=== PATIENT | male | born 1940 | race Caucasian/White ===

== ENCOUNTER 2024-07-06 12:38 | Outpatient (AMB) | payer MEDICARE, OTHER, SELFPAY ==
--- OUTSIDE RECORDS SUMMARY | 2024-07-06 12:40 | XMS_ITS | Clinical Summary ---
Author Organization Formerly [facility] Address [address] [place] [address] Care Team Providers Care Maintenance Mechanic Telephone Name Role Phone Unavailable Primary Care Provider Unavailabl e Social History Tobacco Use Types Packs/Day Years Used Date Smoking Tobacco: Never Assessed Sex and Gender Information Value Date Recorded Sex Assigned at Not on file Legal Sex Male 3:52 PM EDT Gender Identity Not on file Sexual Orientation Not on file Plan of Treatment Health Maintenance Due Date Last Done Comments DTaP/Tdap/Td Vaccines (1 - Tdap) 1959 Pneumococcal Vaccines 50+ (1 of 1 - PCV) 1988 Zoster (Shingles) Vaccine (1 of 2) 1988 RSV Vaccine 60 years and old er and Patients (1 - 1-dose 75+ series) 2013 COVID-19 Vaccine ( - 2023-2 5 season) 2023 Hepatitis B Vaccines Aged Out No long er eligible based on patient's age to complete this topic
--- OUTSIDE RECORDS SUMMARY | 2024-07-06 12:40 | XMS_ITS | Encounter Summary ---
Author Organization [facility] Address [address] [place] [address] Phone Care Team Providers Care Car Checker Name Role Phone John Artis MD Primary Care Provider [phone] Encounter Details Date Type Department Care Team (Late Contact Info) Description 07/09/2021 Telephone [facility] [address] [place] [address] Darnell Andrews, DO [address] [place] [id number] Social History Tobacco Use Types Packs/Day Years Used Date Smoking Tobacco: Never Smokeless Tobacco: Never Alcohol Use Standard Drinks/Week Comments Yes 0 (1 standard drink = 0.6 oz pur e alcohol) 1-2 times a month Sex and Gender Information Value Date Recorded Sex Assigned at Not on file Legal Sex Male 1:16 PM EDT Gender Identity Not on file Sexual Orientation Not on file documented as of this encounter Miscellaneous Notes * Telephone Encounter - Mikaela Jaramillo - 07/09/2021 4:23 PM EDT Pt called, he would like to speak with you reg his U/S results from May. Please call him back at [phone] Thank you documented in this encounter Plan of Treatment Upcoming Encounters Date Type Department Care Team (Late Contact Info) Description 11/28/2024 2:00 PM EDT [facility] Visit [facility] [address] [place] [address] Javad Lynn MD [address] [address] documented as of this encounter Visit Diagnoses Not on filedocumented in this encounter Care Teams Car Checker Relationship Specialty Start Date End Date John Artis MD [address] [place] [address], [address] [place], [place] PCP - General Internal Medicine 11/17/20 documented as of this encounter
--- OUTSIDE RECORDS SUMMARY | 2024-07-06 12:40 | XMS_ITS | Clinical Summary ---
Author Organization [facility] Address [address] [facility] [address] [place] [address] Phone Care Team Providers Care Consumer Loan Processor Name Role Phone John Artis MD Primary Care Provider [phone] Allergies Active Allergy Reactions Criticality Noted Date Comments Mixed Ragweed 06/18/2021 Molds & Smuts 06/18/2021 Short Ragweed Pollen Ext 11/27/2020 Medications aspirin (ST ELISABETH) 81 MG EC tablet Take 81 mg by mouth 1 (one) time each day Active bumetanide (BUMEX) 0.5 MG tablet Take 0.5 mg by mouth 1 (one) time each day Active calcium carbonate (OS-CARLOS) 600 MG tablet Take 600 mg by mouth 2 (two) times a day with meals Active ciprofloxacin (CIPRO) 500 MG tablet Take 500 mg by mouth in the morning and 500 mg in the evening. Active metoprolol succinate XL (TOPROL XL) 25 MG 24 hr tablet Take 25 mg by mouth 1 (one) time each day Do not crush or chew. Active albuterol HFA (PROVENTIL HFA;VENTOLIN HFA) 108 (90 Base) MCG/ACT inhaler Inhale 2 puffs every 6 (six) hours if needed for wheezing Active rosuvastatin (CRESTOR) 20 MG tablet Take 20 mg by mouth 1 (one) time each day Active tamsulosin (FLOMAX) 0.4 MG 24 hr capsule Take 0.4 mg by mouth 1 (one) time each day Active ofloxacin (OCUFLOX) 0.3 % ophthalmic solution INSTILL 1 DROP IN THE RIGHT EYE AT BEDTIME 09/19/19 21 Active betamethasone, augmented, (DIPROLENE) 0.05 % cream PLEASE SEE ATTACHED FOR DETAILED DIRECTIONS 10/16/19 21 Active barium (Readi-Cat 2) 2 % suspension See Instructions, 2 bottles as per radiology 1 evening before [address], # 2 pack/packet, 0 Refills, Maintenance, 11/07/20 13:19:00 EDT, [id number], Partial fill upon patient request if the prescription is for a schedule II opioid . 11/07/19 21 Active [place]-3 Fat Ac-Cholecalcif rosi (MINICAPS VITAMIN-D/OMEG A-3 PO) Take 2,000 Units by mouth 09/05/19 20 Active Flovent HFA 110 MCG/ACT inhaler INHALE 2 PUFFS BY MOUTH TWICE DAILY. RINSE MOUTH AFTER USE 09/18/19 Active amoxicillin (AMOXIL) 250 MG capsule Take by mouth For tooth extraction Active olmesartan (BENICAR) 5 MG tablet TAKE 2 TABLETS BY MOUTH 1 TIME EACH DAY. 180 tablet 06/15/19 25 Active olmesartan (BENICAR) 5 MG tablet TAKE 2 TABLETS BY MOUTH 1 TIME EACH DAY. 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 Allergic rhinitis 06/18/2021 Atrial premature complex 06/18/2021 Chronic obstructive pulmonary disease 06/18/2021 Glaucoma 06/18/2021 Heel pain 06/18/2021 Hyperlipidemia 06/18/2021 Impotence of organic origin 06/18/2021 Increased frequency of urination 06/18/2021 Malignant neoplasm of prostate 06/18/2021 Microalbuminuria 06/18/2021 Other iron deficiency anemia 06/18/2021 Stage 3b chronic kidney disease 01/02/2021 Anemia in chronic kidney disease 01/02/2021 Cyst of kidney 11/27/2020 Overview (11/27/2020): Left renal cyst Hypertension 11/26/2020 Encounters Date Type Department Care Team Description 06/14/2024 Refill [facility] [address] [place] [address] Javad Lynn MD 05/30/2024 1:30 PM EDT Office Visit [facility] [address] [place] [phone] Javad Lynn MD Stage 3 chronic kidney disease, not otherwise specified (HCC) (Primary Dx); Hypertension; Microalbuminuria 05/23/2024 Orders Only [facility] [address] [facility] [address] [place] [phone] Javad Lynn MD from Last 3 Months Immunizations Immunization Administration Dates Next Due Influenza, Unspecified 11/28/2019,11/22/2018,11/2017 Pfizer SARS-COV-2 04/23/2020,04/02/2020 Shingrix 01/08/2020,10/25/2019 Family History Medical History Relation Comments Cancer Father Hypertension Mother Cancer Sister Relation Status Comments Father Mother Sister Social History Tobacco Use Types Packs/Day Years Used Date Smoking Tobacco: Never Smokeless Tobacco: Never Tobacco Cessation:Counseling Given: Not Answered Alcohol Use Standard Drinks/Week Comments Yes 0 (1 standard drink = 0.6 oz pur e alcohol) 1-2 times a month Sex and Gender Information Value Date Recorded Sex Assigned at Not on file Legal Sex Male 1:16 PM EDT Gender Identity Not on file Sexual Orientation Not on file Last Filed Vital Signs Vital Sign Reading Time Taken Comments Blood Pressure 144/74 05/30/2024 1:23 PM EDT Pulse 77 05/30/2024 1:23 PM EDT Temperature - - Respiratory Rate - - Oxygen Saturation 93% 06/18/2021 1:23 PM EDT Inhaled Oxygen Concentration - - Weight 70.3 kg (155 lb) 05/30/2024 1:23 PM EDT Height - - Body Mass Index - - Plan of Treatment Upcoming Encounters Date Type Department Care Team (Late st Contact Info) Description 11/28/2024 2:00 PM EDT Office Visit [facility] [address] [place] [phone] Javad Lynn MD [address] [facility] [address] [place] [phone] Health Maintenance Due Date Last Done Comments Pneumococcal Vaccine: 50+ Years (1 of 2 - PCV) 1957 Influenza Vaccine (Season Ended) 2024 11/28/2019, 11/22/2018, 11/07/2017 Hepatitis B Vaccine Aged Out No longe r eligible based on patient's age to complete this topic Procedures Procedure Name Priority Date/Time Associated Diagnosis Comments RENAL FUNCTION PANEL Routine 05/23/2024 10:23 AM EDT RENAL FUNCTION PANEL Routine 05/16/2024 10:09 AM EDT from Last 3 Months Results * (ABNORMAL) Renal Function Panel (05/23/2024 10:23 AM EDT) Only the most recent of2 resultswithin the time period is included. Glucose 106(H) 70 - 99 mg/dL [facility] BUN 37(H) 8 - 27 mg/dL [facility] Creatinine 2.01(H) 0.76 - 1.27 mg/dL [facility] eGFR CKD-EPI CR 2020 32(L) >59 mL/min/1.7 3 [facility] BUN/Creatinine Ratio 18 10 - 24 [facility] Sodium 144 134 - 144 mmol/L [facility] Potassium 4.4 3.5 - 5.2 mmol/L [facility] Chloride 105 96 - 106 mmol/L [facility] Bicarbonate (CO2) 23 20 - 29 mmol/L [facility] Calcium 9.4 8.6 - 10.2 mg/dL [facility] Albumin 4.0 3.7 - 4.7 g/dL [facility] Phosphorus 3.2 2.8 - 4.1 mg/dL [facility] 05/23/2024 10:2 3 AM EDT 05/23/2024 Javad Lynn MD LAB BLOOD ORDERABLES Final Resul t [facility] [address] [place] [address] from Last 3 Months Insurance Medicare [facility] Medicare [facility] Care Teams Consumer Loan Processor Relationship Specialty Start Date End Date John Artis MD [address] [place] [address], [address] [place], [place] PCP - General Internal Medicine 11/17/20
--- NOTE | 2024-07-06 12:41 | MHC.PC.OV ---
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 Required: No Allergies No Known Allergies Allergy (Verified 07/06/24 12:49) Tobacco use date assessed: 07/06/24 Fall risk assessment: 1 Fall in past year Last assessed Fall Risk: 07/06/24 Dental Screening Dental Screen Date: 07/06/24 Did you have a dental visit in the last 12 months?: Yes Did you have a dental problem in the last 6 months where you did not have access to dental care?: No Was dental information given to patient?: Patient has dentist HPI HPI Comments History of Present Illness Details 84-year-old male presents to [facility] care. He admits to taking her medications as prescribed without adverse reactions. He notes that his asthma has been well controlled. Prior PCP? - Dr. Artsi, [facility] Last office visit/CPE/labs - 6 months ago Acute issue(s) - None Past Medical History - Hypertension, hyperlipidemia, PACs, asthma, kidney disease, skin cancer, glaucoma, blind right eye, ASSINIBOINE AND [place] TRIBES both ears, importance of organic origin, prostate cancer, urinary incontinence, colon polyp Surgical History - Surgery both eyes to correct glaucoma, appendectomy Family History - Dad: Prostate cancer - Mom: Hypertension - MGM: Cardiovascular disease disease, pancreatic cancer - MGF: Cardiovascular disease - PGF: Cardiovascular disease Social History - Nonsmoker. Does not vape. Drinks 1 can of beer 3 times weekly. Denies recreational drug use - Has been making healthy dietary choices. Walks regularly. Generally sleep well Health maintenance - Last eye exam was a months ago with [facility], [facility]. He will sign a release for his PCP to obtain his ophthalmology record - Last dental visit was 6 months ago. 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 Specialists [facility], [facility], [facility], [facility], Dr Danielle, [facility], [facility], [facility] Medical History (Updated 07/06/24 @ 14:08 by Mark Aparicio CNP) Skin cancer Prostate cancer Incontinence Prostate troubles Kidney disease High cholesterol High blood pressure Asthma Polyp of colon Surgical History (Updated 07/06/24 @ 13:04 by Shanice Lebron MA) History of eye surgery Hx of appendectomy Family History (Updated 07/06/24 @ 13:11 by Shanice Lebron MA) Mother High blood pressure Sister Asthma Breast cancer Maternal Grandmother Cardiovascular disease Pancreatic cancer Maternal Grandfather Cardiovascular disease Paternal Grandfather Cardiovascular disease Father Prostate cancer Social History Housing: House Patient Tobacco Use Status: Never used Tobacco e-Cigarette/Vaping Use: Never Used Second Hand Smoke Exposure: No service: No Current occupational status: retired Current occupational exposures/hazards: No Cognitive needs: No Hearing needs: Yes Vision needs: Yes Questionnaire PHQ-9 Over the last 2 weeks, how often have you been bothered by any of the following problems? 1. Little interest or pleasure in doing things: not at all 2. Feeling down, depressed, or hopeless: not at all 3. Trouble falling or staying asleep, or sleeping too much: not at all 4. Feeling tired or having little energy: not at all 5. Poor appetite or overeating: not at all 6. Feeling bad about yourself - or that you are a failure or have let yourself or your family down: not at all 7. Trouble concentrating on things, such as reading the newspaper or watching television: not at all 8. Moving or speaking so slowly that other people could have noticed. Or the opposite - being so fidgety or restless that you have been moving around a lot more than usual: not at all 9. Thoughts that you would be better off or of hurting yourself in some way: not at all Total score: 0 Depression Screening Interpretation: Negative Depression Screening Done: Yes 90511 - PHQ-9 Billing: Yes Source: Developed by Drs. Delta LAnjelica Arias, Sonny Asif and colleagues, with an educational rafi from [employer]. Thrive Questionnaire Date Thrive assessed: 07/06/24 I am a: Patient What is your living situation today?: I have a steady place to live Within the past 12 months, did the food you bought not last and you didn't have the money to get more?: Never true Within the past 12 months, did you worry whether your food would run out before you got money to buy more?: Never true Do you have trouble paying for medicines?: No Do you have trouble getting transportation to medical appointments?: No Do you have trouble paying your heating and electricity bill?: No Do you have trouble taking care of your child, family member or friend?: No Do you have trouble with day-to-day activities such as bathing, preparing meals, shopping, managing finances, etc.?: No Are you currently unemployed and looking for a job?: No Are you interested in more education?: No Please select the resources that you would like help with: None Currently or been in a relationship where the following occur: No concerns reported THRIVE Score: 0 AUDIT C Alcohol Use Questionnaire (AUDIT-C) 1. How often do you have a drink containing alcohol?: 2-4 times a month 2. How many drinks containing alcohol do you have on a typical day when you are drinking?: 1 or 2 3. How often do you have six or more drinks on one occasion?: Never Total Score: 2 Score Reviewed/Action Taken: Yes MAKENZIE-7 AMB Questionnaire MAKENZIE-7 Date MAKENZIE - 7 assessed: 07/06/24 Feeling nervous, anxious, or on edge: 0 = Not at all Not being able to stop or control worryin = Not at all Worrying too much about different things: 0 = Not at all Trouble relaxin = Not at all Being so restless that it is hard to sit still: 0 = Not at all Becoming easily annoyed or irritable: 0 = Not at all Feeling afraid as if something awful might happen: 0 = Not at all Total MAKENZIE-7 score (0-4 normal; 5-9 mild; 10-14 moderate; 15-21 severe): 0 Source: Developed by Anjelica Marks Kurt Kroenke and colleagues, with an educational rafi from [employer]. MAKENZIE-7 Assessment Billing MAKENZIE-7 Assessment Tool: MAKENZIE-7 Assessment 20062 ACT Questionnaire In the past 4 weeks, how much of the time did your asthma keep you from getting as much done at work, school or at home?: None of the time During the past 4 weeks, how often have you had shortness of breath?: Not at all During the past 4 weeks, how often did your asthma symptoms wake you up at night or earlier than usual in the morning?: Not at all During the past 4 weeks, how often have you had to use your rescue inhaler or nebulizer medication?: More than 3 times per day (every morning) How would you rate your asthma control during the past 4 weeks?: Completely controlled ACT Interpretation: Negative Score: 21 Review of Systems Const Details: Const Denies chills, Denies fatigue, Denies fever(s), Denies headache(s) and Denies weakness ENT Denies dizziness and Denies headache(s) Card Denies chest pain, Denies lightheadedness, Denies dyspnea and Denies other (Palpitations) Resp Denies cough, Denies dyspnea, Denies wheezing and Denies other ( shortness of breath) GI Denies abdominal pain, Denies melena, Denies hematochezia, Denies change in bowel habits, Denies dyspepsia and Denies nausea Denies hematuria and Denies dysuria Musc Denies abnormal gait, Denies myalgias, Denies arthralgias, Denies numbness and Denies tingling Skin/Breast Denies rash, Denies unusual bruising and Denies wounds Neuro Denies abnormal gait, Denies dizziness, Denies headache(s), Denies memory loss, Denies numbness, Denies Sensory deficit (Neuro), Denies tingling and Denies weakness Psych Denies anxiety, Denies depression, Denies memory loss Endo Denies cold intolerance, Denies fatigue, Denies heat intolerance, Denies polydipsia and Denies polyuria Aller/Immun Denies wheezing Physical exam (Primary Care) Vital Signs: Last Vital Signs Temp 97.3 F 07/06/24 12:55 Pulse 70 07/06/24 12:55 Resp 16 07/06/24 12:55 BP 166/77 H 07/06/24 12:55 Pulse Ox 98 05/09/25 12:55 Oxygen Delivery Method Room Air 07/06/24 12:55 BMI result Body Mass Index 23.9 Tobacco/Smoking Status: Tobacco use Status Tobacco use date assessed 07/06/24 07/06/24 12:59 Patient Tobacco Use Status Never used Tobacco 07/06/24 12:59 e-Cigarette/Vaping Use Never Used 07/06/24 12:59 PHQ-9: PHQ-9 Score PHQ-9: Total score 0 07/06/24 12:43 Depression Screening Interpretation: Negative Thrive Assessment: Date of Thrive Assessment Date Thrive assessed 07/06/24 07/06/24 12:43 Currently or been in a relationship where the following occur: No concerns reported Const Other: General: no acute distress and well developed Nutritional Appearance: well nourished Orientation/consciousness: patient oriented x3 HENMT Head: Yes normocephalic and Yes atraumatic Eyes General: appearance normal, left eyes and all related structures, abnormal right eye exam at baseline Pupils: Left, round and reactive pupils present EOM: EOMs intact left eye Mouth Poor dentition. Several decayed and missing teeth Resp Effort & Inspection: normal respiratory effort Auscultation: clear to auscultation bilaterally Cardio Rate: regular rate Rhythm: regular rhythm Heart sounds: S1 normal heart sound present, S2 normal heart sound present, no gallops, no murmurs and no rubs GI Palpation (GI): No Abdominal aortic bruit present, Soft to palpation, nontender, No hepatosplenomegaly present and No Rebound tenderness present Auscultation: normal bowel sounds General: Yes no CVA tenderness Back/Spine/Pelvis Back: no CVA tenderness Cervical Spine: cervical ROM normal and No Cervical spine tenderness Thoracic/Lumbar Spine: thoraco-lumbar ROM normal, No pain with thoraco-lumbar ROM, No thoracic spinal tenderness and No lumbar spinal tenderness Extrem General: Yes normal to inspection, No edema and No calf tenderness Skin General: warm and dry. Normal skin color. Normal skin turgor Lesions: no lesions Rashes: no rashes Trauma: no lacerations or abrasions Wounds: no wounds Nails: normal Neuro General: patient oriented x3, gait normal and no focal neuro deficit Cranial nerves: Yes Equal, round and reactive pupils present Cognition (Neuro): normal cognition Gait exam (Neuro): Normal gait present Sensory Exam: No Sensory deficit (Neuro) Psych Appearance: grossly normal Affect: normal affect Attitude: cooperative Thought process: Normal thought process present Coding Level of Care Code New Pt Level 4 (79095) Diagnoses High blood pressure I10 Asthma J45.909 High cholesterol E78.00 Kidney disease N28.9 Laboratory tests ordered as part of a complete physical exam (CPE) Z00.00 Poor dentition K08.9 Additional Codes Asthma Control Questionnaire - ACT Interpretation: Negative ([id number]) MAKENZIE-7 Assessment Billing - MAKENZIE-7 Assessment Tool: MAKENZIE-7 Assessment 53037 ([id number]) PHQ-9 - 10511 - PHQ-9 Billing: Yes ([id number]) Assessment & Plan Assessment & Plan (1) High blood pressure: Code(s): I10 - Essential (primary) hypertension Category: Medical Plan: Resting blood pressure is 142/70, slightly above goal of less than 140/90. Continue current treatment regimen. Low-sodium diet and routine exercise encouraged. Follow-up in 1 month or sooner with symptoms or concerns. Verbalized understanding and agreed with the treatment plan. (2) Asthma: Code(s): J45.909 - Unspecified asthma, uncomplicated Category: Medical Plan: Will control asthma. ACT score is 21. Albuterol inhaler as prescribed. Follow-up as needed. Verbalized understanding and agreed with the plan. (3) High cholesterol: Code(s): E78.00 - Pure hypercholesterolemia, unspecified Category: Medical Plan: Continue current treatment. Low fat diet encouraged. Will check lipid panel and make changes as needed. (4) Kidney disease: Code(s): N28.9 - Disorder of kidney and ureter, unspecified Category: Medical Plan: Followed by [facility]. (5) Laboratory tests ordered as part of a complete physical exam (CPE): Code(s): Z00.00 - Encounter for general adult medical examination without abnormal findings Category: Medical Plan: Fasting labs ordered as part of a complete physical exam. Advised to fast for at least 10 hours before getting labs drawn. May drink water Verbalized understanding and agreed with treatment plan. (6) Poor dentition: Code(s): K08.9 - Disorder of teeth and supporting structures, unspecified Category: Medical Plan: Poor dentition. Several decayed and missing teeth. Last dental visit was 6 months ago. He will make a follow up appointment next week. Orders: Orders Comprehensive [place]. Panel Fast Today Z00.00 - Encounter for general adult medical examination without abnormal findings PSA, Ultra Sensitive Today Z00.00 - Encounter for general adult medical examination without abnormal findings TSH reflex Free T4 Today Z00.00 - Encounter for general adult medical examination without abnormal findings UA CC w/rflx Micro + Cult Today Z00.00 - Encounter for general adult medical examination without abnormal findings Vitamin D 25-OH Total Today Z00.00 - Encounter for general adult medical examination without abnormal findings Complete Blood Count Auto Diff Today Z00.00 - Encounter for general adult medical examination without abnormal findings Lipid Panel Today Z00.00 - Encounter for general adult medical examination without abnormal findings Microalbumin, Random (w Creat) Today Z00.00 - Encounter for general adult medical examination without abnormal findings
[2024-07-06 12:55] VITALS: BP 166/77; PULSE 70; RESP 16; TEMP 36.3; O2SAT 98; BMI 23.9
[2024-07-06 13:26] VITALS: BP 142/70
== END 2024-07-06 13:49 | disposition home or self-care (01) ==
LOC: HO.HMCFM 12:39
PROVIDERS: PCP Nurse Practitioner Family; Visit Provider Nurse Practitioner Family
DX: I10 Essential (primary) hypertension (principal); J45.909 Unspecified asthma, uncomplicated; E78.00 Pure hypercholesterolemia, unspecified; N28.9 Disorder of kidney and ureter, unspecified; Z00.00 Encounter for general adult medical examination without abnormal findings; K08.9 Disorder of teeth and supporting structures, unspecified

== ENCOUNTER → 2024-07-06 12:38 | Outpatient (BNVA) | payer MEDICARE, OTHER, SELFPAY | PROVIDERS: PCP Nurse Practitioner Family; Visit Provider Nurse Practitioner Family | DX: Z00.01 Encounter for general adult medical examination with abnormal findings (principal); I10 Essential (primary) hypertension; J45.909 Unspecified asthma, uncomplicated; E78.00 Pure hypercholesterolemia, unspecified; N28.9 Disorder of kidney and ureter, unspecified; K08.9 Disorder of teeth and supporting structures, unspecified | CPT/HCPCS: 96127; 96160; 99202 ==

== ENCOUNTER 2024-07-13 10:23 | Outpatient (REF) | payer MEDICARE, OTHER, SELFPAY ==
--- OUTSIDE RECORDS SUMMARY | 2024-07-13 10:43 | XMS_ITS | Clinical Summary ---
Author Organization [facility] Address [address] [place] [address] Care Team Providers Care Rugby [employer] Footballer Name Role Phone Unavailable Primary Care Provider [...]
--- OUTSIDE RECORDS SUMMARY | 2024-07-13 10:43 | XMS_ITS | Clinical Summary ---
Author Organization [facility] Address 100 [facility] [address] [place] [address] Phone Care Team Providers Care Hydrogen Plant Operator Name Role Phone John Artis MD Primary Care Provider [phone] Allergies Active Allergy Reactions Criticality Noted Date [...] 0 Refills, Maintenance, 11/07/20 13:19:00 EDT, [id number] Partial fill upon patient request if the prescription is for a schedule II opioid . 11/07/19 21 Active [place]-3 Fat Ac-Cholecalcif rosi (MINICAPS VITAMIN-D/OMEG A-3 PO) [...] [place] [address] [place] [address] Javad Lynn MD 05/30/2024 1:30 PM EDT Office Visit [facility] [address] [place] [phone] Javad Lynn MD Stage 3 chronic kidney disease, not otherwise specified (HCC) (Primary Dx); Hypertension; Microalbuminuria 05/23/2024 Orders Only [facility] [address] [facility] [address] [place] [phone] Javad Lynn MD from Last 3 Months [...] Office Visit [facility] [address] [place] [phone] Javad Lynn MD [address] [facility] [address] [place] [phone] Health Maintenance Due Date Last Done Comments [...] Glucose 106(H) 70 - 99 mg/dL [facility] BUN 37(H) 8 - 27 mg/dL [facility] Creatinine 2.01(H) 0.76 - 1.27 mg/dL [facility] eGFR CKD-EPI CR 2020 32(L) >59 mL/min/1.7 3 [facility] BUN/Creatinine Ratio 18 10 - 24 [facility] Sodium 144 134 - 144 mmol/L [facility] Potassium 4.4 3.5 - 5.2 mmol/L [facility] Chloride 105 96 - 106 mmol/L [facility] Bicarbonate (CO2) 23 20 - 29 mmol/L [facility] Calcium 9.4 8.6 - 10.2 mg/dL [facility] Albumin 4.0 3.7 - 4.7 g/dL [facility] Phosphorus 3.2 2.8 - 4.1 mg/dL [facility] 05/23/2024 10:2 3 AM EDT 05/23/2024 Javad Lynn MD LAB BLOOD ORDERABLES Final Resul t [facility] [address] [place] [address] from Last 3 Months Insurance Medicare [employer] Medicare [employer] Care Teams Hydrogen Plant Operator Relationship Specialty Start Date End Date John Artis MD [address] [place] [address], [address] [place], [place] PCP - General Internal Medicine 11/17/20
--- OUTSIDE RECORDS SUMMARY | 2024-07-13 10:43 | XMS_ITS | Encounter Summary ---
Author Organization [facility] Address [address] [place] [address] Phone Care Team Providers Care Opticianry Teacher Name Role Phone John Artis MD Primary Care Provider [phone] Encounter Details Date Type Department Care Team (Late Contact Info) Description 07/09/2021 Telephone [facility] [address] [place] [address] Darnell Andrews, DO [address] [place] [address] Social History Tobacco Use Types Packs/Day Years [...] from May. Please call him back at [phone] Thank you documented in this encounter Plan of Treatment Upcoming Encounters Date Type Department Care Team (Late Contact Info) Description 11/28/2024 2:00 PM EDT Office Visit [facility] [address] [place] [address] Javad Lynn MD [address] [address] documented as of this encounter Visit Diagnoses Not on filedocumented in this encounter Care Teams Opticianry Teacher Relationship Specialty Start Date End Date John Artis MD [address] [place] [address], [address] [place], [place] PCP - General Internal Medicine 11/17/20 documented as of this encounter
[2024-07-13 14:34] LABS: Appearance Urine Clear; Color Urine Yellow; Glucose Urine UA Negative (Negative); Leukocyte Esterase Urine Negative (Negative); Nitrite Urine Negative (Negative); PH 5.5 (5.0-9.0); Urine Blood Negative (Negative); Urine Ketones Negative (Negative); Urine Protein Negative (Neg-Trace)
[2024-07-13 15:25] LABS: Creatinine Urine 41.46 mg/dL; Microalbum/Creatinine Ratio Ur 26.5 ug/mg cr (<30)
== END 2024-07-13 10:24 | disposition home or self-care (01) ==
LOC: HO.WFDLDS 10:23
PROVIDERS: Visit Provider Nurse Practitioner Family
DX: Z00.00 Encounter for general adult medical examination without abnormal findings (principal)
CPT/HCPCS: 81003; 82043; 82570

== ENCOUNTER 2024-07-16 09:53 | Outpatient (REF) | payer MEDICARE, OTHER, SELFPAY ==
--- OUTSIDE RECORDS SUMMARY | 2024-07-16 10:12 | XMS_ITS | Clinical Summary ---
Author Organization [facility] Address [address] [place] [address] Care Team Providers Care Insurance Marketing Specialist Name Role Phone Unavailable Primary Care Provider [...]
--- OUTSIDE RECORDS SUMMARY | 2024-07-16 10:12 | XMS_ITS | Clinical Summary ---
Author Organization [facility] Address [address] [facility] [address] [place] [address] Phone Care Team Providers Care Wood Chopper Name Role Phone John Artis MD Primary Care Provider [phone] Allergies Active Allergy Reactions Criticality Noted Date [...] DROP IN THE RIGHT EYE AT BEDTIME Active betamethasone, augmented, (DIPROLENE) 0.05 % cream PLEASE SEE ATTACHED FOR DETAILED DIRECTIONS 1 Active barium (Readi-Cat 2) 2 % suspension See Instructions, 2 bottles as per radiology 1 evening before [address], # 2 pack/packet, 0 Refills, Maintenance, 11/07/20 13:19:00 EDT, [id number], Partial fill upon patient request if the prescription is for a schedule II opioid . 1 Active [place]-3 Fat Ac-Cholecalcife rol (MINICAPS VITAMIN-D/OMEGA -3 PO) Take 2,000 Units by mouth 0 Active Flovent HFA 110 MCG/ACT inhaler INHALE 2 PUFFS BY MOUTH TWICE DAILY. RINSE MOUTH AFTER USE 3 Active amoxicillin (AMOXIL) 250 MG capsule Take by mouth For tooth extraction Active olmesartan (BENICAR) 5 MG tablet TAKE 2 TABLETS BY MOUTH 1 TIME EACH DAY. 180 tablet 5 Active Active Problems Problem Noted Date Diagnosed Date [...] [facility] [address] [place] [address] Javad Lynn MD 05/30/2024 1:30 PM EDT Office Visit [facility] [place] [address] [place] [address] Javad Lynn MD Stage 3 chronic kidney disease, not otherwise specified (HCC) (Primary Dx); Hypertension; Microalbuminuria 05/23/2024 Orders Only [facility] [address] [phone] Javad Lynn MD from Last 3 Months [...] Office Visit [facility] [address] [place] [phone] Javad Lynn MD [address] [phone] Health Maintenance Due Date Last Done Comments [...] Glucose 106(H) 70 - 99 mg/dL [facility] BUN 37(H) 8 - 27 mg/dL [facility] Creatinine 2.01(H) 0.76 - 1.27 mg/dL [facility] eGFR CKD-EPI CR 2020 32(L) >59 mL/min/1.7 3 [facility] BUN/Creatinine Ratio 18 10 - 24 [facility] Sodium 144 134 - 144 mmol/L [facility] Potassium 4.4 3.5 - 5.2 mmol/L [facility] Chloride 105 96 - 106 mmol/L [facility] Bicarbonate (CO2) 23 20 - 29 mmol/L [facility] Calcium 9.4 8.6 - 10.2 mg/dL [facility] Albumin 4.0 3.7 - 4.7 g/dL [facility] Phosphorus 3.2 2.8 - 4.1 mg/dL [facility] 05/23/2024 10:2 3 AM EDT 05/23/2024 us Javad Lynn MD LAB BLOOD ORDERABLES Final Resul t [facility] [address] [place] [address] from Last 3 Months Insurance Medicare [facility] Medicare [facility] Care Teams Wood Chopper Relationship Specialty Start Date End Date John Artis MD [address] [place] [address], [facility] [address] [place], [place] PCP - General Internal Medicine 11/17/20
--- OUTSIDE RECORDS SUMMARY | 2024-07-16 10:12 | XMS_ITS | Encounter Summary ---
Author Organization [facility] Address [address] [place] [address] Phone Care Team Providers Care Facility Rehab Director Name Role Phone John Artis MD Primary Care Provider [phone] Encounter Details Date Type Department Care Team (Late Contact Info) Description 07/09/2021 Telephone [facility] [address] [place] [address] Darnell Andrews, DO [address] [place] [address] Social History Tobacco Use Types Packs/Day Years [...] from May. Please call him back at [phone] Thank you documented in this encounter Plan of Treatment Upcoming Encounters Date Type Department Care Team (Late Contact Info) Description 11/28/2024 2:00 PM EDT Office Visit [facility] [address] [place] [address] Javad Lynn MD [address] [address] documented as of this encounter Visit Diagnoses Not on filedocumented in this encounter Care Teams Facility Rehab Director Relationship Specialty Start Date End Date John Artis MD [address] [place] [address], [address] [place], [place] PCP - General Internal Medicine 11/17/20 documented as of this encounter
[2024-07-16 11:00] LABS: MANUAL DIFF FLAG NO
[2024-07-16 11:24] LABS: Basophils Absolute Auto 0.1 X10*3/uL (0.0-0.2); Basophils Percent Auto 0.9 % (0-2); Eosinophils Absolute Auto 0.8 X10*3/uL (0.0-0.4); Eosinophils Percent Auto 13.7 % (0-4); Hematocrit 40.5 % (42.0-52.0); Hemoglobin 13.1 g/dl (14.0-18.0); Imm Gran Abs Auto 0.02 X10*3/uL (0.00-0.03); Imm Gran Pct Auto 0.4 % (0.0-0.4); Lymphocytes Absolute Auto 0.9 X10*3/uL (1.2-4.9); Lymphocytes Percent Auto 16.2 % (20-40); Mean Corpuscular HGB Conc 32.3 g/dl (31.0-36.0); Mean Corpuscular Hemoglobin 30.9 pg (27.0-33.0); Mean Corpuscular Volume 95.5 fL (80.0-98.0); Mean Platelet Volume 10.3 fL (9.4-12.4); Monocytes Absolute Auto 0.7 X10*3/uL (0.1-1.2); Neutrophils Absolute Auto 3.2 x10*3/uL (2.0-8.3); Neutrophils Percent Auto 56.8 % (45-73); Platelet Count 164 X10*3/uL (160-400); Red Blood Count 4.24 X10*6/uL (4.60-5.80); Red Cell Distribution Width 13.5 % (11.0-16.0); White Blood Count 5.7 X10*3/uL (4.8-10.8)
[2024-07-16 12:16] LABS: TSH reflex Free T4 2.58 uIU/mL (0.32-4.0); Vitamin D 25-OH Total 50.1 ng/mL (>30)
[2024-07-16 12:17] LABS: Anion Gap 12 (12-20)
[2024-07-16 12:22] LABS: Alanine Aminotransferase 9 U/L (0-40); Alkaline Phosphatase 76 U/L (39-117); Aspartate Amino Transferase 22 U/L (5-37); Bilirubin Total 0.5 mg/dL (0.0-1.0); Blood Urea Nitrogen 26 mg/dL (9-16); Calcium 9.5 mg/dL (8.4-10.2); Carbon Dioxide 28 mmol/L (22-29); Chloride 106 mmol/L (96-108); Cholesterol 234 mg/dL (<200); Estimated Glomerular Filt Rate 32; Glucose Fasting 95 mg/dL (60-99); HDL Cholesterol 47 mg/dL (>40); LDL Cholesterol Calculated 167 mg/dL (<100); Potassium 4.7 mmol/L (3.3-5.1); Sodium 141 mmol/L (135-145); Total Protein 7.3 g/dL (6.5-8.0); Triglycerides 100 mg/dL (<150)
[2024-07-25 07:49] LABS: PSA, Ultra Sensitive 8.58 ng/mL
== END 2024-07-16 09:54 | disposition home or self-care (01) ==
LOC: HO.WFDLDS 09:53
PROVIDERS: Visit Provider Nurse Practitioner Family
DX: Z00.00 Encounter for general adult medical examination without abnormal findings (principal); Z12.5 Encounter for screening for malignant neoplasm of prostate; Z13.29 Encounter for screening for other suspected endocrine disorder; Z13.0 Encounter for screening for diseases of the blood and blood-forming organs and certain disorders involving the immune mechanism; Z13.220 Encounter for screening for lipoid disorders
CPT/HCPCS: 36415; 80053; 80061; 82306; 84153; 84443; 85025

== ENCOUNTER 2024-08-10 12:44 | Outpatient (AMB) | payer MEDICARE, OTHER, SELFPAY ==
--- NOTE | 2024-08-10 12:52 | MHC.PC.OV ---
Vital Signs 08/10/24 13:00 Height 5 ft 8 in Weight 153 lb 2 oz BMI 23.3 BP 126/68 Blood Pressure Location Lt brachial Position Sitting Respiration 16 Pulse 76 Pulse Source Pulse Oximeter Temp 97.7 F Temp Source Temporal Artery Scan Pulse Oximetry (%) 96 Oxygen Delivery Method Room Air Intake Visit Reasons: 1 mos HTN, labs review, TDaP Intake Note: Agustín presents in the office today for a follow up to HTN, lab review and a TDAP Vaccination. Allergies No Known Allergies Allergy (Verified 08/10/24 13:23) Medication List - Last Reconciled 08/10/24 by Mark Aparicio CNP albuterol sulfate 90 mcg/actuation inhalation aspirin 81 mg PO DAILY bumetanide 0.5 mg PO DAILY 30 days clotrimazole 1% appl topical DAILY fluticasone furoate 100 mcg/actuation (Arnuity Ellipta) 1 inh inhalation DAILY 30 days metoprolol succinate ER 25 mg PO DAILY ofloxacin 0.3% drps ophthalmic (eye) olmesartan mg PO rosuvastatin 20 mg PO BEDTIME Tobacco use date assessed: 08/10/24 Fall risk assessment: 1 Fall in past year Last assessed Fall Risk: 08/10/24 Dental Screening Dental Screen Date: 08/10/24 Did you have a dental visit in the last 12 months?: Yes Did you have a dental problem in the last 6 months where you did not have access to dental care?: No Was dental information given to patient?: Patient has dentist HPI HPI Comments History of Present Illness Details 84-year-old male presents for hypertension and review of recent lab results. He admits to taking his medications as prescribed without adverse reactions. He generally eats healthy. However, he consumes significant amount of cheese and red meat. He offers no complaints and denies acute symptoms at this time. [facility] Medical History (Updated 08/10/24 @ 13:25 by Mark Aparicio CNP) Skin cancer Prostate cancer Incontinence Prostate troubles Kidney disease High cholesterol High blood pressure Asthma Polyp of colon Surgical History (Updated 07/06/24 @ 13:04 by Shanice Lebron MA) History of eye surgery Hx of appendectomy Family History Mother High blood pressure Sister Asthma Breast cancer Maternal Grandmother Cardiovascular disease Pancreatic cancer Maternal Grandfather Cardiovascular disease Paternal Grandfather Cardiovascular disease Father Prostate cancer Social History (Updated 08/10/24 @ 13:00 by Lisa Stern MA) Housing: House Alcohol intake: current Patient Tobacco Use Status: Never used Tobacco e-Cigarette/Vaping Use: Never Used Second Hand Smoke Exposure: No service: No Current occupational status: retired Current occupational exposures/hazards: No Cognitive needs: No Hearing needs: Yes Vision needs: Yes Questionnaire PHQ-9 Over the last 2 weeks, how often have you been bothered by any of the following problems? 1. Little interest or pleasure in doing things: not at all 2. Feeling down, depressed, or hopeless: not at all 3. Trouble falling or staying asleep, or sleeping too much: not at all 4. Feeling tired or having little energy: not at all 5. Poor appetite or overeating: not at all 6. Feeling bad about yourself - or that you are a failure or have let yourself or your family down: not at all 7. Trouble concentrating on things, such as reading the newspaper or watching television: not at all 8. Moving or speaking so slowly that other people could have noticed. Or the opposite - being so fidgety or restless that you have been moving around a lot more than usual: not at all 9. Thoughts that you would be better off or of hurting yourself in some way: not at all Total score: 0 Depression Screening Interpretation: Negative Depression Screening Done: Yes 51614 - PHQ-9 Billing: Yes Source: Developed by Drs. Delta Galan, Anjelica Flannery, Sonny Asif and colleagues, with an educational rafi from [employer]. Thrive Questionnaire Date Thrive assessed: 08/10/24 I am a: Patient What is your living situation today?: I have a steady place to live Within the past 12 months, did the food you bought not last and you didn't have the money to get more?: Never true Within the past 12 months, did you worry whether your food would run out before you got money to buy more?: Never true Do you have trouble paying for medicines?: No Do you have trouble getting transportation to medical appointments?: No Do you have trouble paying your heating and electricity bill?: No Do you have trouble taking care of your child, family member or friend?: No Do you have trouble with day-to-day activities such as bathing, preparing meals, shopping, managing finances, etc.?: No Are you currently unemployed and looking for a job?: No Are you interested in more education?: No Please select the resources that you would like help with: None Currently or been in a relationship where the following occur: No concerns reported THRIVE Score: 0 AUDIT C Alcohol Use Questionnaire (AUDIT-C) 1. How often do you have a drink containing alcohol?: Monthly or less 2. How many drinks containing alcohol do you have on a typical day when you are drinking?: 1 or 2 3. How often do you have six or more drinks on one occasion?: Never Total Score: 1 MAKENZIE-7 AMB Questionnaire MAKENZIE-7 Date MAKENZIE - 7 assessed: 08/10/24 Feeling nervous, anxious, or on edge: 0 = Not at all Not being able to stop or control worryin = Not at all Worrying too much about different things: 0 = Not at all Trouble relaxin = Not at all Being so restless that it is hard to sit still: 0 = Not at all Becoming easily annoyed or irritable: 0 = Not at all Feeling afraid as if something awful might happen: 0 = Not at all Total MAKENZIE-7 score (0-4 normal; 5-9 mild; 10-14 moderate; 15-21 severe): 0 Source: Developed by Drs. Delta Galan, Anjelica Flannery, Sonny Asif and colleagues, with an educational rafi from [employer]. MAKENZIE-7 Assessment Billing MAKENZIE-7 Assessment Tool: MAKENZIE-7 Assessment 29741 Review of Systems Const Details: Const Denies chills, Denies fatigue, Denies fever(s), Denies headache(s) and Denies weakness ENT Denies dizziness and Denies headache(s) Card Denies chest pain, Denies lightheadedness, Denies dyspnea and Denies other (Palpitations) Resp Denies cough, Denies dyspnea, Denies wheezing and Denies other ( shortness of breath) GI Denies abdominal pain, Denies melena, Denies hematochezia, Denies change in bowel habits, Denies dyspepsia and Denies nausea Denies hematuria and Denies dysuria Musc Denies abnormal gait, Denies myalgias, Denies arthralgias, Denies numbness and Denies tingling Skin/Breast Denies rash, Denies unusual bruising and Denies wounds Neuro Denies abnormal gait, Denies dizziness, Denies headache(s), Denies memory loss, Denies numbness, Denies Sensory deficit (Neuro), Denies tingling and Denies weakness Psych Denies anxiety, Denies depression, Denies memory loss Endo Denies cold intolerance, Denies fatigue, Denies heat intolerance, Denies polydipsia and Denies polyuria Aller/Immun Denies wheezing Physical exam (Primary Care) Vital Signs: Last Vital Signs Temp 97.7 F 08/10/24 13:00 Pulse 76 08/10/24 13:00 Resp 16 08/10/24 13:00 BP 126/68 08/10/24 13:00 Pulse Ox 96 08/10/24 13:00 Oxygen Delivery Method Room Air 08/10/24 13:00 BMI result Body Mass Index 23.3 Tobacco/Smoking Status: Tobacco use Status Tobacco use date assessed 08/10/24 08/10/24 12:58 Patient Tobacco Use Status Never used Tobacco 08/10/24 13:00 e-Cigarette/Vaping Use Never Used 08/10/24 13:00 PHQ-9: PHQ-9 Score PHQ-9: Total score 0 08/10/24 13:29 Depression Screening Interpretation: Negative Thrive Assessment: Date of Thrive Assessment Date Thrive assessed 08/10/24 08/10/24 13:04 Currently or been in a relationship where the following occur: No concerns reported Const Other: General: no acute distress and well developed Nutritional Appearance: well nourished Orientation/consciousness: patient oriented x3 HENMT Head: Yes normocephalic and Yes atraumatic Eyes General: appearance normal, both eyes and all related structures Pupils: Equal, round and reactive pupils present EOM: EOMs intact bilaterally Resp Effort & Inspection: normal respiratory effort Auscultation: clear to auscultation bilaterally Cardio Rate: regular rate Rhythm: regular rhythm Heart sounds: S1 normal heart sound present, S2 normal heart sound present, no gallops, no murmurs and no rubs GI Palpation (GI): No Abdominal aortic bruit present, Soft to palpation, nontender, No hepatosplenomegaly present and No Rebound tenderness present Auscultation: normal bowel sounds General: Yes no CVA tenderness Back/Spine/Pelvis Back: no CVA tenderness Cervical Spine: cervical ROM normal and No Cervical spine tenderness Thoracic/Lumbar Spine: thoraco-lumbar ROM normal, No pain with thoraco-lumbar ROM, No thoracic spinal tenderness and No lumbar spinal tenderness Extrem General: Yes normal to inspection, No edema and No calf tenderness Skin General: warm and dry. Normal skin color. Normal skin turgor Neuro General: patient oriented x3, gait normal and no focal neuro deficit Cranial nerves: Yes Equal, round and reactive pupils present Cognition (Neuro): normal cognition Gait exam (Neuro): Normal gait present Sensory Exam: No Sensory deficit (Neuro) Psych Appearance: grossly normal Affect: normal affect Attitude: cooperative Thought process: Normal thought process present Immunizations Boostrix Tdap 2.5 Lf unit-8 mcg-5 Lf/0.5 mL intramuscular syringe Performing Provider: Mark Aparicio CNP Performing Location: [facility] Administered by: Lizabeth Reddy RN on 08/10/24 13:50 Dose Route Admin Location Dispensed Lot Number Expiration Date [employer] Distribution System Operator 0.5 mL IM Left Deltoid 0.5 mL [id number] 10/26/26 35240-880-31 [employer] [place] VIS Given Date VIS Provided VIS Publication Date 08/10/24 Single Vaccine 20 Eligibility Eligibility Date Funding Source Not [facility] Eligible 08/10/24 Private Coding Level of Care Code Est Pt Level 4 (25396) Diagnoses High blood pressure I10 High cholesterol E78.00 Chronic kidney disease N18.9 Elevated PSA R97.20 Normocytic anemia D64.9 Additional Codes MAKENZIE-7 Assessment Billing - MAKENZIE-7 Assessment Tool: MAKENZIE-7 Assessment 84291 ([id number]) PHQ-9 - 70924 - PHQ-9 Billing: Yes ([id number]) Assessment & Plan Assessment & Plan (1) High blood pressure: Code(s): I10 - Essential (primary) hypertension Category: Medical Plan: Blood pressure today is 126/68, within goal of less than 140/90. Continue current treatment regimen. Low-sodium diet encouraged. Follow-up in 3 months or sooner with symptoms or concerns. Verbalized understanding and agreed with the plan. (2) High cholesterol: Code(s): E78.00 - Pure hypercholesterolemia, unspecified Category: Medical Plan: Recent total cholesterol and LDL levels are elevated, 234 and 167 respectively. Triglycerides and HDL levels are normal. He generally eats healthy. However, he consumes significant amount of cheese and red meat. Will increase rosuvastatin to 40 mg at bedtime; advised to take as prescribed. Advised to limit foods high in saturated fat and avoid foods high in trans fat. Routine exercise encouraged. Fast for 10-12 hours, may drink water, and perform lipid panel blood work a few days before next visit. Follow-up in 3 months. Verbalized understanding and agreed with the plan. (3) Chronic kidney disease: Code(s): N18.9 - Chronic kidney disease, unspecified Category: Medical Plan: Recent BUN and creatinine levels are elevated, 26 and 2.01 respectively. Continue current treatment regimen. Followed by [facility]. (4) Elevated PSA: Code(s): R97.20 - Elevated prostate specific antigen [PSA] Category: Medical Plan: Recent PSA level is elevated, 8.58. Continue current treatment regimen. He has history of prostate cancer and followed by [facility]. (5) Normocytic anemia: Code(s): D64.9 - Anemia, unspecified Category: Medical Plan: Recent RBC and H&H are slightly low, 4.24 and 13.1/40.5 respectively. MCV is normal. Likely anemia of chronic disease due to hypertension and CKD. We will continue to monitor. Will check vitamin B12 and folate levels. Verbalized understanding and agreed with the plan. Orders: Orders Lipid Panel 3 Months E78.00 - Pure hypercholesterolemia, unspecified Vitamin B12 and Folate Today D64.9 - Anemia, unspecified TDaP Immunization Today Z23 - Encounter for immunization Medications: New rosuvastatin 40 mg PO DAILY 30 days 30 tabs 3RF
[2024-08-10 13:00] VITALS: BP 126/68; PULSE 76; RESP 16; TEMP 36.5; O2SAT 96; BMI 23.3
--- OUTSIDE RECORDS SUMMARY | 2024-08-10 13:11 | XMS_ITS | Encounter Summary ---
Author Organization [facility] Address [address] [place] [address] Phone Care Team Providers Care Check Out Clerk Name Role Phone John Artis MD Primary Care Provider [phone] Encounter Details Date Type Department Care Team (Late Contact Info) Description 07/09/2021 Telephone [facility] [address] [place] [address] Darnell Andrews, DO [address] [place] [address] Social History Tobacco Use Types Packs/Day Years [...] from May. Please call him back at [phone] Thank you documented in this encounter Plan of Treatment Upcoming Encounters Date Type Department Care Team (Late Contact Info) Description 11/28/2024 2:00 PM EDT [facility] [address] [place] [address] Javad Lynn MD [address] [address] documented as of this encounter Visit Diagnoses Not on filedocumented in this encounter Care Teams Check Out Clerk Relationship Specialty Start Date End Date John Artis MD [address] [place] [address], [address] [place], [place] PCP - General Internal Medicine 11/17/20 documented as of this encounter
== END 2024-08-10 13:41 | disposition home or self-care (01) ==
LOC: HO.HMCFM 12:44
PROVIDERS: PCP Nurse Practitioner Family; Visit Provider Nurse Practitioner Family
DX: I12.9 Hypertensive chronic kidney disease with stage 1 through stage 4 chronic kidney disease, or unspecified chronic kidney disease (principal); E78.00 Pure hypercholesterolemia, unspecified; N18.9 Chronic kidney disease, unspecified; R97.20 Elevated prostate specific antigen [PSA]; D64.9 Anemia, unspecified; Z23 Encounter for immunization

== ENCOUNTER → 2024-08-10 12:44 | Outpatient (BNVA) | payer MEDICARE, OTHER, SELFPAY | PROVIDERS: PCP Nurse Practitioner Family; Visit Provider Nurse Practitioner Family | DX: Z23 Encounter for immunization (principal); E78.00 Pure hypercholesterolemia, unspecified; R97.20 Elevated prostate specific antigen [PSA]; D64.9 Anemia, unspecified; I12.9 Hypertensive chronic kidney disease with stage 1 through stage 4 chronic kidney disease, or unspecified chronic kidney disease; N18.9 Chronic kidney disease, unspecified | CPT/HCPCS: 90471; 90715; 96127; 99212 ==

== ENCOUNTER 2024-11-09 08:43 | Outpatient (REF) | payer MEDICARE, OTHER, SELFPAY ==
--- OUTSIDE RECORDS SUMMARY | 2024-11-09 09:24 | XMS_ITS | Clinical Summary ---
Author Organization [facility] Address [address] [facility] [address] [place] [address] Phone Care Team Providers Care Lan Support Specialist Name Role Phone John Artis MD Primary Care Provider [phone] Allergies Active Allergy Reactions Criticality Noted Date [...] 0 Refills, Maintenance, 11/07/20 13:19:00 EDT, [id number] Partial fill upon patient request if the prescription is for a schedule II opioid . 1 Active [place]-3 Fat Ac-Cholecalcife rol (MINICAPS VITAMIN-D/OMEGA -3 PO) [...] Encounters Date Type Department Care Team Description 09/08/2024 Refill [facility] [address] [place] [address] Javad Lynn MD from Last 3 Months [...] Care Team (Late st Contact Info) Description 12/12/2024 2:00 PM EDT [facility] [address] [place] [address] Javad Lynn MD [address] [address] Health Maintenance Due Date Last Done Comments Pneumococcal Vaccine: 50+ Years (1 of 2 - PCV) 1959 Influenza Vaccine (#1) 2024 0, 11/22/2018, 11/07/2017 Hepatitis B Vaccine Aged Out No longe r eligible based on patient's age to complete this topic Insurance Medicare [facility] Medicare [facility] Care Teams Lan Support Specialist Relationship Specialty Start Date End Date John Artis MD [address] [place] [address], [address] [place], [place] PCP - General Internal Medicine 11/17/20
--- OUTSIDE RECORDS SUMMARY | 2024-11-09 09:24 | XMS_ITS | Clinical Summary ---
Author Organization [facility], Located Within [facility] Address [address] [place] [address] Care Team Providers Care Diamond Cutter Name Role Phone Unavailable Primary Care Provider Unavailabl e Social History Tobacco Use Types Packs/Day Years Used Date Smoking Tobacco: Never Assessed Sex and Gender Information Value Date Recorded Sex Assigned at Not on file Legal Sex Male 3:52 PM EDT Gender Identity Not on file Sexual Orientation Not on file Plan of Treatment Health Maintenance Due Date Last Done Comments Advance Care Planning 1940 DTaP/Tdap/Td Vaccines (1 - Tdap) 1957 Pneumococcal Vaccines 50+ (1 of 1 - PCV) 1988 Zoster (Shingles) Vaccine (1 of 2) 1988 RSV Vaccine 60 years and old er and Patients (1 - 1-dose 75+ series) 2013 COVID-19 Vaccine (2023-2 5 season) 2024 Hepatitis B Vaccines Aged Out No long er eligible based on patient's age to complete this topic
--- OUTSIDE RECORDS SUMMARY | 2024-11-09 09:24 | XMS_ITS | Encounter Summary ---
Author Organization [facility] Address [address] [place] [address] Phone Care Team Providers Care Pharmaceutical Botanist Name Role Phone John Artis MD Primary Care Provider [phone] Encounter Details Date Type Department Care Team (Late Contact Info) Description 07/09/2021 Telephone [facility] [address] [place] [address] Darnell Andrews, DO [address] [place] [id number] Social History Tobacco Use Types Packs/Day Years [...] from May. Please call him back at [phone] Thank you documented in this encounter Plan of Treatment Upcoming Encounters Date Type Department Care Team (Late Contact Info) Description 12/12/2024 2:00 PM EDT [facility] Visit [facility] [address] [place] [address] Javad Lynn MD [address] [address] documented as of this encounter Visit Diagnoses Not on filedocumented in this encounter Care Teams Pharmaceutical Botanist Relationship Specialty Start Date End Date John Artis MD [address] [place] [address], [address] [place], [place] PCP - General Internal Medicine 11/17/20 documented as of this encounter
[2024-11-09 12:25] LABS: Cholesterol 142 mg/dL (<200); HDL Cholesterol 43 mg/dL (>40); Triglycerides 98 mg/dL (<150)
[2024-11-09 13:00] LABS: Folate > 20.0 ng/mL (> or = 4.0); Vitamin B12 414 pg/mL (200-900)
== END 2024-11-09 08:44 | disposition home or self-care (01) ==
LOC: HO.WFDLDS 08:43
PROVIDERS: Visit Provider Nurse Practitioner Family
DX: D64.9 Anemia, unspecified (principal); E78.00 Pure hypercholesterolemia, unspecified
CPT/HCPCS: 36415; 80061; 82607; 82746

== ENCOUNTER 2024-11-12 11:40 | Outpatient (AMB) | payer MEDICARE, OTHER, SELFPAY ==
--- NOTE | 2024-11-12 11:50 | A.OFFPC_ITS ---
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 He admits to taking his medications as prescribed without adverse reactions. Has been making healthy lifestyle changes. He offers no complaints and denies acute symptoms at this time. [facility] Medical History (Updated 08/10/24 @ 13:25 by Mark Aparicio CNP) Skin cancer Prostate cancer Incontinence Prostate troubles Kidney disease High cholesterol High blood pressure Asthma Polyp of colon Surgical History (Updated 07/06/24 @ 13:04 by Shanice Lebron MA) History of eye surgery Hx of appendectomy Family History Mother High blood pressure Sister Asthma Breast cancer Maternal Grandmother Cardiovascular disease Pancreatic cancer Maternal Grandfather Cardiovascular disease Paternal Grandfather Cardiovascular disease Father Prostate cancer Social History (Updated 08/10/24 @ 13:00 by Lisa Stern MA) Housing: House Alcohol intake: current Patient Tobacco Use Status: Never used Tobacco e-Cigarette/Vaping Use: Never Used Second Hand Smoke Exposure: No service: No Current occupational status: retired Current occupational exposures/hazards: No Cognitive needs: No Hearing needs: Yes Vision needs: Yes Questionnaire Thrive Questionnaire Date Thrive assessed: 07/06/24 I am a: Patient What is your living situation today?: I have a steady place to live Within the past 12 months, did the food you bought not last and you didn't have the money to get more?: Never true Within the past 12 months, did you worry whether your food would run out before you got money to buy more?: Never true Do you have trouble paying for medicines?: No Do you have trouble getting transportation to medical appointments?: No Do you have trouble paying your heating and electricity bill?: No Do you have trouble taking care of your child, family member or friend?: No Do you have trouble with day-to-day activities such as bathing, preparing meals, shopping, managing finances, etc.?: No Are you currently unemployed and looking for a job?: No Are you interested in more education?: No Please select the resources that you would like help with: None Currently or been in a relationship where the following occur: No concerns reported THRIVE Score: 0 MAKENZIE-7 AMB Questionnaire MAKENZIE-7 Date MAKENZIE - 7 assessed: 08/10/24 Source: Developed by Drs. Delta Galan, Anjelica Flannery, Sonny Asif and colleagues, with an educational rafi from [employer]. Review of Systems Const Details: Const Denies chills, Denies fatigue, Denies fever(s), Denies headache(s) and Denies weakness ENT Denies dizziness and Denies headache(s) Card Denies chest pain, Denies lightheadedness, Denies dyspnea and Denies other (Palpitations) Resp Denies cough, Denies dyspnea, Denies wheezing and Denies other ( shortness of breath) GI Denies abdominal pain, Denies melena, Denies hematochezia, Denies change in bowel habits, Denies dyspepsia and Denies nausea Denies hematuria and Denies dysuria Musc Denies abnormal gait, Denies myalgias, Denies arthralgias, Denies numbness and Denies tingling Skin/Breast Denies rash, Denies unusual bruising and Denies wounds Neuro Denies abnormal gait, Denies dizziness, Denies headache(s), Denies memory loss, Denies numbness, Denies Sensory deficit (Neuro), Denies tingling and Denies weakness Psych Denies anxiety, Denies depression, Denies memory loss Endo Denies cold intolerance, Denies fatigue, Denies heat intolerance, Denies polydipsia and Denies polyuria Aller/Immun Denies wheezing Physical exam (Primary Care) Vital Signs: Last Vital Signs Temp 97.5 F 11/12/24 11:56 Pulse 72 11/12/24 11:56 Resp 16 11/12/24 11:56 BP 123/58 L 11/12/24 11:56 Pulse Ox 96 11/12/24 11:56 Oxygen Delivery Method Room Air 11/12/24 11:56 BMI result Body Mass Index 23.1 Tobacco/Smoking Status: Tobacco use Status Tobacco use date assessed 11/12/24 11/12/24 11:58 Patient Tobacco Use Status Never used Tobacco 11/12/24 11:54 e-Cigarette/Vaping Use Never Used 11/12/24 11:54 Thrive Assessment: Date of Thrive Assessment Date Thrive assessed 07/06/24 11/12/24 11:54 Currently or been in a relationship where the following occur: No concerns reported Const Other: General: no acute distress and well developed Nutritional Appearance: well nourished Orientation/consciousness: patient oriented x3 HENMT Head: Yes normocephalic and Yes atraumatic Eyes General: appearance normal, both eyes and all related structures Pupils: Equal, round and reactive pupils present EOM: EOMs intact bilaterally Resp Effort & Inspection: normal respiratory effort Auscultation: clear to auscultation bilaterally Cardio Rate: regular rate Rhythm: regular rhythm Heart sounds: S1 normal heart sound present, S2 normal heart sound present, no gallops, no murmurs and no rubs GI Palpation (GI): No Abdominal aortic bruit present, Soft to palpation, nontender, No hepatosplenomegaly present and No Rebound tenderness present Auscultation: normal bowel sounds General: Yes no CVA tenderness Back/Spine/Pelvis Back: no CVA tenderness Cervical Spine: cervical ROM normal and No Cervical spine tenderness Thoracic/Lumbar Spine: thoraco-lumbar ROM normal, No pain with thoraco-lumbar ROM, No thoracic spinal tenderness and No lumbar spinal tenderness Extrem General: Yes normal to inspection, No edema and No calf tenderness Skin General: warm and dry. Normal skin color. Normal skin turgor Neuro General: patient oriented x3, gait normal and no focal neuro deficit Cranial nerves: Yes Equal, round and reactive pupils present Cognition (Neuro): normal cognition Gait exam (Neuro): Normal gait present Sensory Exam: No Sensory deficit (Neuro) Psych Appearance: grossly normal Affect: normal affect Attitude: cooperative Thought process: Normal thought process present Coding Level of Care Code Est Pt Level 3 (21647) Diagnoses High blood pressure I10 High cholesterol E78.00 Normocytic anemia D64.9 Assessment & Plan Assessment & Plan (1) High blood pressure: Code(s): I10 - Essential (primary) hypertension Category: Medical Plan: Blood pressure is 123/58, within goal of less than 140/90. Continue current treatment regimen. Low-sodium diet encouraged. Follow-up for an extended physical exam in 2 months. Return sooner with symptoms or concerns. Verbalized understanding and agreed with the plan. (2) High cholesterol: Code(s): E78.00 - Pure hypercholesterolemia, unspecified Category: Medical Plan: Recent lipid panel level is normal. Continue current treatment regimen. Will monitor lipid panel annually or as needed. Verbalized understanding and agreed with the plan. (3) Normocytic anemia: Code(s): D64.9 - Anemia, unspecified Category: Medical Plan: Recent RBC and H&H are slightly low, 4.24 and 13.1/40.5 respectively. MCV is normal. Recent vitamin B12 and folate levels are normal. Will monitor CBC annually or as needed. Verbalized understanding and agreed with the plan.
[2024-11-12 11:56] VITALS: BP 123/58; PULSE 72; RESP 16; TEMP 36.4; O2SAT 96; BMI 23.1
== END 2024-11-12 12:13 | disposition home or self-care (01) ==
LOC: HO.HMCFM 11:41
PROVIDERS: PCP Nurse Practitioner Family; Visit Provider Nurse Practitioner Family
DX: I10 Essential (primary) hypertension (principal); E78.00 Pure hypercholesterolemia, unspecified; D64.9 Anemia, unspecified

== ENCOUNTER → 2024-11-12 11:40 | Outpatient (BNVA) | payer MEDICARE, OTHER, SELFPAY | PROVIDERS: PCP Nurse Practitioner Family; Visit Provider Nurse Practitioner Family | DX: I10 Essential (primary) hypertension (principal); E78.00 Pure hypercholesterolemia, unspecified; D64.9 Anemia, unspecified | CPT/HCPCS: 99212 ==

== ENCOUNTER 2025-01-15 14:40 | Outpatient (AMB) | payer MEDICARE, OTHER, SELFPAY ==
[2025-01-15 14:50] VITALS: BP 157/71; PULSE 80; RESP 20; TEMP 36.4; O2SAT 95; BMI 22.9
--- NOTE | 2025-01-15 14:50 | A.OFFPC_ITS ---
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 Allergies No Known Allergies Allergy (Verified 01/15/25 15:08) Medication List - Last Reconciled 01/15/25 by Mark Aparicio CNP albuterol sulfate 90 mcg/actuation inhalation aspirin 81 mg PO DAILY bumetanide 0.5 mg PO DAILY 30 days clotrimazole 1% appl topical DAILY fluticasone furoate 100 mcg/actuation (Arnuity Ellipta) 1 inh inhalation DAILY 30 days metoprolol succinate ER 25 mg PO DAILY 30 days ofloxacin 0.3% drps ophthalmic (eye) olmesartan mg PO rosuvastatin 20 mg PO DAILY 30 days Tobacco use date assessed: 01/15/25 Fall risk assessment: 1 Fall in past year Last assessed Fall Risk: 01/15/25 Dental Screening Dental Screen Date: 11/12/24 Did you have a dental visit in the last 12 months?: Yes Did you have a dental problem in the last 6 months where you did not have access to dental care?: No Was dental information given to patient?: Patient has dentist HPI HPI Comments History of Present Illness Details 84-year-old male presents for an extende d physical exam. He admits to taking his medications as prescribed without adverse reactions. 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 Does not vape. Drinks 1 bee r twice monthly. Denies recreational drug use - Has been making healthy dietary choice s. Exercises routinely. Generally sleep well Health maintenance - Last eye exam was in 05/2024 with [facility], [facility]. He will sign a release for his PCP to obtain his ophthalmology record - Last dental visit was 2 months ago - Last Tdap was in 08/10/2024 - Up-to-date on the shingles and pneumon ia vaccines - Had the flu vaccine in 11/2024 - Last colonoscopy was 6 years ago: catherine rodriguez; He no longer performs colonoscopy - He has never had a dexa scan. Dexa sca n ordered Specialists - [facility], - [facility] - [facility] - Dr Danielle, [facility] - [facility] Medical History (Updated 01/15/25 @ 15:31 by Mark Aparicio CNP) Skin cancer Prostate cancer Incontinence Prostate troubles Kidney disease High cholesterol High blood pressure Asthma Polyp of colon Surgical History (Updated 07/06/24 @ 13:04 by CECI Maldonado) History of eye surgery Hx of appendectomy Family History Mother High blood pressure Sister Asthma Breast cancer Maternal Grandmother Cardiovascular disease Pancreatic cancer Maternal Grandfather Cardiovascular disease Paternal Grandfather Cardiovascular disease Father Prostate cancer Social History (Updated 08/10/24 @ 13:00 by Lisa Stern MA) Housing: House Alcohol intake: current Patient Tobacco Use Status: Never used Tobacco e-Cigarette/Vaping Use: Never Used Second Hand Smoke Exposure: No service: No Current occupational status: retired Current occupational exposures/hazards: No Cognitive needs: No Hearing needs: Yes Vision needs: Yes Questionnaire PHQ-9 Over the last 2 weeks, how often have you been bothered by any of the following problems? 1. Little interest or pleasure in doing things: not at all 2. Feeling down, depressed, or hopeless: not at all 3. Trouble falling or staying asleep, or sleeping too much: not at all 4. Feeling tired or having little energy: not at all 5. Poor appetite or overeating: not at all 6. Feeling bad about yourself - or that you are a failure or have let yourself or your family down: not at all 7. Trouble concentrating on things, such as reading the newspaper or watching television: not at all 8. Moving or speaking so slowly that other people could have noticed. Or the opposite - being so fidgety or restless that you have been moving around a lot more than usual: not at all 9. Thoughts that you would be better off or of hurting yourself in some way: not at all Total score: 0 Depression Screening Interpretation: Negative Depression Screening Done: Yes 86628 - PHQ-9 Billing: Yes Source: Developed by Drs. Delta Galan, Anjelica Flannery, Sonny Asif and colleagues, with an educational rafi from [employer]. Thrive Questionnaire Date Thrive assessed: 07/06/24 I am a: Patient What is your living situation today?: I have a steady place to live Within the past 12 months, did the food you bought not last and you didn't have the money to get more?: Never true Within the past 12 months, did you worry whether your food would run out before you got money to buy more?: Never true Do you have trouble paying for medicines?: No Do you have trouble getting transportation to medical appointments?: No Do you have trouble paying your heating and electricity bill?: No Do you have trouble taking care of your child, family member or friend?: No Do you have trouble with day-to-day activities such as bathing, preparing meals, shopping, managing finances, etc.?: No Are you currently unemployed and looking for a job?: No Are you interested in more education?: No Please select the resources that you would like help with: None Currently or been in a relationship where the following occur: No concerns reported THRIVE Score: 0 AUDIT C Alcohol Use Questionnaire (AUDIT-C) 1. How often do you have a drink containing alcohol?: 2-4 times a month 2. How many drinks containing alcohol do you have on a typical day when you are drinking?: 1 or 2 3. How often do you have six or more drinks on one occasion?: Never Total Score: 2 MAKENZIE-7 AMB Questionnaire MAKENZIE-7 Date MAKENZIE - 7 assessed: 01/15/25 Feeling nervous, anxious, or on edge: 0 = Not at all Not being able to stop or control worryin = Not at all Worrying too much about different things: 0 = Not at all Trouble relaxin = Not at all Being so restless that it is hard to sit still: 0 = Not at all Becoming easily annoyed or irritable: 0 = Not at all Feeling afraid as if something awful might happen: 0 = Not at all Total MAKENZIE-7 score (0-4 normal; 5-9 mild; 10-14 moderate; 15-21 severe): 0 Source: Developed by Drs. Delta Galan, Anjelica Flannery, Sonny Asif and colleagues, with an educational rafi from [employer]. MAKENZIE-7 Assessment Billing MAKENZIE-7 Assessment Tool: MAKENZIE-7 Assessment 76532 Review of Systems Const Details: Const Denies chills, Denies fatigue, Denies fever(s), Denies headache(s) and Denies weakness ENT Denies dizziness and Denies headache(s) Card Denies chest pain, Denies lightheadedness, Denies dyspnea and Denies other (Palpitations) Resp Denies cough, Denies dyspnea, Denies wheezing and Denies other ( shortness of breath) GI Denies abdominal pain, Denies melena, Denies hematochezia, Denies change in bowel habits, Denies dyspepsia and Denies nausea Denies hematuria and Denies dysuria Musc Denies abnormal gait, Denies myalgias, Denies arthralgias, Denies numbness and Denies tingling Skin/Breast Denies rash, Denies unusual bruising and Denies wounds Neuro Denies abnormal gait, Denies dizziness, Denies headache(s), Denies memory loss, Denies numbness, Denies Sensory deficit (Neuro), Denies tingling and Denies weakness Psych Denies anxiety, Denies depression, Denies memory loss Endo Denies cold intolerance, Denies fatigue, Denies heat intolerance, Denies polydipsia and Denies polyuria Aller/Immun Denies wheezing Physical exam (Primary Care) Vital Signs: Last Vital Signs Temp 97.6 F 01/15/25 14:50 Pulse 80 01/15/25 14:50 Resp 20 01/15/25 14:50 BP 130/60 01/15/25 15:11 Pulse Ox 95 01/15/25 14:50 Oxygen Delivery Method Room Air 01/15/25 14:50 BMI result Body Mass Index 22.9 Tobacco/Smoking Status: Tobacco use Status Tobacco use date assessed 01/15/25 01/15/25 14:56 Patient Tobacco Use Status Never used Tobacco 01/15/25 14:56 e-Cigarette/Vaping Use Never Used 01/15/25 14:56 PHQ-9: PHQ-9 Score PHQ-9: Total score 0 01/15/25 18:40 Depression Screening Interpretation: Negative Thrive Assessment: Date of Thrive Assessment Date Thrive assessed 07/06/24 01/15/25 14:56 Currently or been in a relationship where the following occur: No concerns repor tony Const Other: General: no acute distress and well developed Nutritional Appearance: well nourished Orientation/consciousness: patient oriented x3 [facility] Head: Yes normocephalic and Yes atraumatic Eyes General: appearance normal, left eye and all related structures, abnormal right eye exam at baseline d/t blindness Pupils: Equal, round and reactive pupils present EOM: EOMs intact left eye, abnormal right eye Resp Effort & Inspection: normal respiratory effort Auscultation: clear to auscultation bilaterally Cardio Rate: regular rate Rhythm: regular rhythm Heart sounds: S1 normal heart sound present, S2 normal heart sound present, no gallops, no murmurs and no rubs GI Palpation (GI): No Abdominal aortic bruit present, Soft to palpation, nontender, No hepatosplenomegaly present and No Rebound tenderness present Auscultation: normal bowel sounds General: Yes no CVA tenderness Back/Spine/Pelvis Back: no CVA tenderness Cervical Spine: cervical ROM normal and No Cervical spine tenderness Thoracic/Lumbar Spine: thoraco-lumbar ROM normal, No pain with thoraco-lumbar ROM, No thoracic spinal tenderness and No lumbar spinal tenderness Extrem General: Yes normal to inspection, No edema and No calf tenderness Skin General: warm and dry. Normal skin color. Normal skin turgor Lesions: no lesions Rashes: no rashes Trauma: no lacerations or abrasions Wounds: no wounds Nails: normal Neuro General: patient oriented x3, gait normal and no focal neuro deficit Cranial nerves: Yes Equal, round and reactive pupils present Cognition (Neuro): normal cognition Gait exam (Neuro): Normal gait present Sensory Exam: No Sensory deficit (Neuro) Psych Appearance: grossly normal Affect: normal affect Attitude: cooperative Thought process: Normal thought process present Coding Level of Care Code Est Pt Prev Care >65y(59234) Diagnoses Normal physical examination, routine Z00.00 High blood pressure I10 Osteoporosis screening Z13.820 Additional Codes MAKENZIE-7 Assessment Billing - MAKENZIE-7 Assessment Tool: MAKENZIE-7 Assessment 99508 ([id number]) PHQ-9 - 26644 - PHQ-9 Billing: Yes ([id number]) Assessment & Plan Assessment & Plan (1) Normal physical examination, routine: Code(s): Z00.00 - Encounter for general adult medical examination without abnormal findings Category: Medical Plan: No significant functional limitation except for slight abnormal tandem gait. Continue current treatment regimen. Routine exercise encouraged. Continue follow-up with specialists as planned. Schedule a transfer of care follow-up visit with a new provider within the practice. Return sooner with symptoms or concerns. Verbalized understanding and agreed with the plan. (2) High blood pressure: Code(s): I10 - Essential (primary) hypertension Category: Medical Plan: Resting blood pressure is 130/60, within goal of less than 140/90. Continue current treatment regimen. Routine exercise encouraged. Follow-up as planned. Verbalized understanding and agreed with the treatment plan. (3) Osteoporosis screening: Code(s): Z13.820 - Encounter for screening for osteoporosis Category: Medical Plan: He has never had a dexa scan. Dexa scan ordered. Orders: Orders XR DEXA axial skeleton 01/15/25 M81.0 - Age-related osteoporosis without current pathological fracture
[2025-01-15 15:11] VITALS: BP 130/60
--- OUTSIDE RECORDS SUMMARY | 2025-01-16 12:33 | XMS_ITS | Clinical Summary ---
Author Organization [facility] Address [address] [place] [address] Care Team Providers Care High Reach Operator Name Role Phone Unavailable Primary Care Provider [...] Vaccine (1 of 2) 1988 RSV Vaccine 50 years and old er and Patients (1 - 1-dose 75+ series) 2013 COVID-19 Vaccine (2023-2 5 season) 2024 Hepatitis B Vaccines Aged Out No long er eligible based on patient's age to complete this topic
--- OUTSIDE RECORDS SUMMARY | 2025-01-16 12:33 | XMS_ITS | Encounter Summary ---
Author Organization [facility] Address [address] [place] [address] Phone Care Team Providers Care Cloth Neutralizer Name Role Phone John Artis MD Primary Care Provider [phone] Encounter Details Date Type Department Care Team (Late Contact Info) Description 07/09/2021 Telephone [facility] [address] [place] [address] Darnell Andrews, DO [address] [place] [address] Social History Tobacco Use Types Packs/Day Years [...] from May. Please call him back at [phone] Thank you documented in this encounter Plan of Treatment Upcoming Encounters Date Type Department Care Team (Late st Contact Info) Description 06/05/2025 2:45 PM EDT Office Visit [facility] [address] [place] [address] Javad Lynn MD [address] [address] documented as of this encounter Visit Diagnoses Not on filedocumented in this encounter Care Teams Cloth Neutralizer Relationship Specialty Start Date End Date John Artis MD [address] [place] [address], [address] [place], [place] PCP - General Internal Medicine 11/17/20 documented as of this encounter
--- OUTSIDE RECORDS SUMMARY | 2025-01-16 12:34 | XMS_ITS | Clinical Summary ---
Author Organization [facility] Address [address] [facility] [address] [place] [address] Phone Care Team Providers Care Departmental Secretary Name Role Phone John Artis MD Primary Care Provider [phone] Allergies Active Allergy Reactions Criticality Noted Date [...] 0 Refills, Maintenance, 11/07/20 13:19:00 EDT, [id number], Partial fill upon patient request if the prescription is for a schedule II opioid . 1 Active Henley-3 Fat Ac-Cholecalcife rol (MINICAPS VITAMIN-D/OMEGA -3 PO) Take 2,000 Units by mouth 0 Active Flovent HFA 110 MCG/ACT inhaler INHALE 2 PUFFS BY MOUTH TWICE DAILY. RINSE MOUTH AFTER USE 3 Active amoxicillin (AMOXIL) 250 MG capsule Take by mouth For tooth extraction Active Active Problems Problem Noted Date Diagnosed [...] Encounters Date Type Department Care Team Description 12/13/2024 Telephone [facility] [address] [address] Yesi Singer 12/12/2024 2:00 PM EDT Office Visit [facility] [address] [place] [address] Javad Lynn MD Stage 3 chronic kidney disease, not otherwise specified (HCC) (Primary Dx); Hypertension; Microalbuminuria 12/12/2024 Telephone [facility] [address] [place] [address] Yesi Singer 12/12/2024 Refill [facility] [address] [facility] [address] [place] [id number] Javad Lynn MD from Last 3 Months [...] Sign Reading Time Taken Comments Blood Pressure 95/50 12/12/2024 2:00 PM EDT Pulse 78 12/12/2024 2:00 PM EDT Temperature - - Respiratory Rate - - Oxygen Saturation 93% 06/18/2021 1:23 PM EDT Inhaled Oxygen Concentration - - Weight 70.3 kg (155 lb) 12/12/2024 2:00 PM EDT Height 172.7 cm (5' 8 ) 12/12/2024 2:00 PM EDT Body Mass Index 23.57 12/12/2024 2:00 PM EDT Plan of Treatment Upcoming Encounters Date Type Department Care Team (Late st Contact Info) Description 06/05/2025 2:45 PM EDT Office Visit [facility] [address] [place] [phone] Javad Lynn MD [address] [facility] [address] [place] [address] Health Maintenance Due Date Last Done Comments Pneumococcal Vaccine: 50+ Years (1 of 2 - PCV) 1959 Influenza Vaccine (#1) 2024 0, 11/22/2018, 11/07/2017 Hepatitis B Vaccine Aged Out No longe r eligible based on patient's age to complete this topic Procedures Procedure Name Priority Date/Time Associated Diagnosis Comments PTH, INTACT Routine 12/05/2024 9:53 AM EDT VITAMIN D 25 HYDROXY Routine 12/05/2024 9:53 AM EDT URINE ALBUMIN / CREATININE RATIO Routine 12/05/2024 9:53 AM EDT RENAL FUNCTION PANEL Routine 12/05/2024 9:53 AM EDT from Last 3 Months Results * (ABNORMAL) Urine Albumin / Creatinine Ratio (12/05/2024 9:53 AM EDT) Creatinine, Ur 20.8 Not Estab. mg/dL [facility] Albumin, Urine 11.5 Not Estab. ug/mL [facility] Albumin/Creatin ine Ratio 55(H) 0 - 29 mg/g creat [facility] Comment: Normal: 0 - 29 Moderately increased: 30 - 300 Severely increased: >300 12/05/2024 9:53 AM EDT 12/05/2024 us Javad Lynn MD LAB URINE ORDERABLES Final Resul t [facility] [address] [place] [address] * Vitamin D 25 Hydroxy (12/05/2024 9:53 AM EDT) Vitamin D, 25-OH, Total 50.8 30.0 - 100.0 ng/mL [facility] Comment: Vitamin D deficiency has been defined by the [place] of [employer] and an Endocrine Society practice guideline as a level of serum 25-OH vitamin D less than 20 ng/mL (1,2). The Endocrine Society went on to further define vitamin D insufficiency as a level between 21 and 29 ng/mL (2). 1. IOM ([place] of [employer]). 2010. Dietary reference intakes for calcium and D. [place]: The National Academies Press. 2. Celestino MF, Brannon WATSON, Martita PERSAUD, et al. Evaluation, treatment, and prevention of vitamin D deficiency: an Endocrine Society clinical practice guideline. JCEM. 2010; 96(7):1911-30. 12/05/2024 9:53 AM EDT 12/05/2024 us Javad Lynn MD LAB BLOOD ORDERABLES Final Resul t Performing Organization Address City/[facility]/ZIP Co de Phone Number [facility] [address] [place] [address] * PTH, Intact (12/05/2024 9:53 AM EDT) PTH 35 15 - 65 pg/mL [facility] 12/05/2024 9:53 AM EDT 12/05/2024 us Javad Lynn MD LAB BLOOD ORDERABLES Final Resul t Performing Organization Address City/[facility]/ZIP Co de Phone Number [facility] [place] [address] [place] [address] * (ABNORMAL) Renal Function Panel (12/05/2024 9:53 AM EDT) Glucose 101(H) 70 - 99 mg/[facility] BUN 29(H) 8 - 27 mg/dL [facility] Creatinine 2.04(H) 0.76 - 1.27 mg/dL [facility] eGFR CKD-EPI CR 2020 31(L) >59 mL/min/1.7 3 [facility] BUN/Creatinine Ratio 14 10 - 24 [facility] Sodium 138 134 - 144 mmol/L [facility] Potassium 4.8 3.5 - 5.2 mmol/L [facility] Chloride 102 96 - 106 mmol/L [facility] Bicarbonate (CO2) 23 20 - 29 mmol/L [facility] Calcium 9.2 8.6 - 10.2 mg/dL [facility] Albumin 3.9 3.7 - 4.7 g/dL [facility] Phosphorus 3.6 2.8 - 4.1 mg/dL [facility] 12/05/2024 9:53 AM EDT 12/05/2024 Javad Lynn MD LAB BLOOD ORDERABLES Final Resul t [facility] [address] [place] [address] from Last 3 Months Insurance Medicare [facility] Medicare [facility] Care Teams Departmental Secretary Relationship Specialty Start Date End Date John Artis MD [address] [place] [address], [address] [place], [place] PCP - General Internal Medicine 11/17/20
== END 2025-01-15 15:31 | disposition home or self-care (01) ==
LOC: HO.HMCFM 14:41
PROVIDERS: PCP Nurse Practitioner Family; Visit Provider Nurse Practitioner Family
DX: Z00.00 Encounter for general adult medical examination without abnormal findings (principal); I10 Essential (primary) hypertension; Z13.820 Encounter for screening for osteoporosis; Z85.46 Personal history of malignant neoplasm of prostate

== ENCOUNTER → 2025-01-15 14:40 | Outpatient (BNVA) | payer MEDICARE, OTHER, SELFPAY | PROVIDERS: PCP Nurse Practitioner Family; Visit Provider Nurse Practitioner Family | DX: Z00.00 Encounter for general adult medical examination without abnormal findings (principal); I10 Essential (primary) hypertension; M81.0 Age-related osteoporosis without current pathological fracture | CPT/HCPCS: 96127; 99397 ==